=== PATIENT | male | born 1995 | race Caucasian/White ===

== ENCOUNTER 2017-04-13 20:38 | Emergency (ER) | payer SELFPAY ==
[~2017-04-13] VITALS: Ht 172.7 cm; Wt 63.9 kg
[~2017-04-13 20:38] MED LIST: CITALOPRAM HBR20 MG PO; NAPROSYN500 MG PO; OMEPRAZOLE40 M1 PO; PERCOCET 5/31 TABLET PO; RANITIDINE HCL150 MG PO; ULTRAM50 MG PO; ZANTAC150 MG PO; ZOFRAN4 MG PO
[2017-04-13 21:45] VITALS: BP 138/88
== END 2017-04-13 21:45 | disposition home or self-care (01) ==
LOC: EME 20:38 → EXP 20:38
DX: S92.531A Displaced fracture of distal phalanx of right lesser toe(s), initial encounter for closed fracture (principal); W20.8XXA Other cause of strike by thrown, projected or falling object, initial encounter; F17.200 Nicotine dependence, unspecified, uncomplicated
CPT/HCPCS: 73660; 99281; 99283

== ENCOUNTER 2018-05-16 21:25 | Emergency (ER) | payer SELFPAY ==
[~2018-05-16] VITALS: Ht 175.3 cm; Wt 63.2 kg
[2018-05-16] MEDS ORDERED: MEDROL DOSEPAK4 MG PO (22:22)
[2018-05-16 22:43] VITALS: BP 131/93
== END 2018-05-16 22:45 | disposition home or self-care (01) ==
LOC: EME 21:25
DX: S40.012A Contusion of left shoulder, initial encounter (principal); X58.XXXA Exposure to other specified factors, initial encounter; Y99.0 Civilian activity done for income or pay; F17.200 Nicotine dependence, unspecified, uncomplicated
CPT/HCPCS: 73030; 99281; 99283